=== PATIENT | male | born 1990 | race Hispanic/Latino ===

== ENCOUNTER 2023-09-17 14:16 | Emergency (ER) | payer OTHER ==
[~2023-09-17] VITALS: Ht 170.2 cm; Wt 122.5 kg
[2023-09-17 14:54] LABS: BASOPHILS # (AUTO) 0.06 K/uL (0.00-0.20); BASOPHILS % (AUTO) 0.8 % (0.0-5.0); EOSINOPHILS # (AUTO) 0.02 K/uL (0.00-0.70); EOSINOPHILS % (AUTO) 0.3 % (0.0-8.0); HEMATOCRIT 45.7 % (42-54); IMMATURE GRANULOCYTE ABSOLUTE 0.02 K/uL (0-1); LYMPHOCYTES # (AUTO) 1.4 K/uL (1.0-4.8); LYMPHOCYTES % (AUTO) 17.7 % (21.0-51.0); MEAN CORPUSCULAR HEMOGLOBIN 30.6 pg (27.0-33.0); MEAN CORPUSCULAR HGB CONC 34.8 g/dL (32.0-36.0); MEAN CORPUSCULAR VOLUME 88.1 fL (79-99); MONOCYTES # (AUTO) 1.1 K/uL (0.1-1.0); MONOCYTES % (AUTO) 14.1 % (3.0-13.0); NEUTROPHILS # (AUTO) 5.1 K/uL (1.8-7.7); NEUTROPHILS % (AUTO) 66.8 % (40.0-77.0); PLATELET COUNT (AUTO) 97 K/uL (130-400); RED BLOOD CELL COUNT(AUTO) 5.19 MIL/uL (4.50-6.20); RED CELL DISTRIBUTION WIDTH 12.3 % (11.0-15.5); WHITE BLOOD COUNT (AUTO) 7.6 K/uL (4.8-10.8)
[2023-09-17 15:07] LABS: CREATININE 1.1 mg/dL (0.5-1.3); POTASSIUM 3.6 mmol/L (3.5-5.1)
[2023-09-17 15:11] LABS: ALBUMIN 3.1 g/dL (3.5-5.0); BILIRUBIN,TOTAL 0.5 mg/dL (0.2-1.0); TOTAL PROTEIN, SERUM 7.5 g/dL (6.0-8.3)
[2023-09-17] MEDS: 0.9%NACL 1000ML 1,000 ML IV ONE (16:01)
[2023-09-17] MEDS ORDERED: METR-172 PO (17:09)
[2023-09-17] MEDS ORDERED: DICY20TA2 PO (17:09)
[2023-09-17] MEDS: SOLU-MEDROL 125MG VIAL IVP ONE (17:16)
[2023-09-17 17:34] VITALS: BP 140/88; PULSE 89; RESP 18; O2SAT 99
== END 2023-09-17 17:29 | disposition home or self-care (01) ==
LOC: EDH 14:16
DX: K62.5 Hemorrhage of anus and rectum (principal)
CPT/HCPCS: 99285; 74176; 96374; 96361; 80053; 83690; 85025; 36415; J7030; J2919